=== PATIENT | male | born 1975 | race Caucasian/White ===

== ENCOUNTER → 2017-02-21 | Outpatient (CLI) | payer BC ==
[~2017-02-21] MED LIST: IOHEXOL 350 MG/ML 100 ML (OMNIPAQUE 350) VIAL IV ONE; NS 100 ML (IVPB) BAG IV ONE
--- NOTE | 2017-02-21 13:40 | Diagnostic Imaging Report ---
PROCEDURE: CT head with and without contrast. TECHNIQUE: Multiple contiguous axial images were obtained through the brain before and after the administration of intravenous contrast. INDICATION: Headache. 80 mL of Omnipaque 350 is administered intravenously. FINDINGS: The unenhanced phase demonstrates no intracranial hemorrhage. The brain parenchyma demonstrate preserved cooper-white matter differentiation. There is no enhancing mass. There is no hydrocephalus. No extra-axial fluid collection is seen. The visualized portions of the paranasal sinuses demonstrate an incompletely visualized air-fluid level within the left maxillary sinus and mild opacification in the anterior left ethmoid air cells. The orbits appear grossly unremarkable. IMPRESSION: 1. No intracranial hemorrhage or enhancing mass. 2. Suggestion of a left maxillary sinusitis. Report was faxed to office of Dr. Mckeon by pravin at 1:40 PM. Dictated by: Dictated on workstation # [id number]
== END ==
LOC: RAD 11:51
PROVIDERS: ATTEND Internal Medicine
DX: R51 Headache (principal); H53.9 Unspecified visual disturbance
CPT/HCPCS: 70470